=== PATIENT | female | born 1980 | race Caucasian/White ===

== ENCOUNTER 2021-07-11 11:25 | Emergency (ER) | payer OTHER ==
[~2021-07-11] VITALS: Ht 157.5 cm; Wt 88.5 kg
[2021-07-11 11:59] LABS: ABSOLUTE BASOPHILS 0.1 thou/uL (0.0-0.2); ABSOLUTE EOSINOPHILS 0.1 thou/uL (0.0-0.7); ABSOLUTE LYMPHOCYTES 1.6 thou/uL (0.8-5.3); ABSOLUTE MONOCYTES 0.6 thou/uL (0.0-1.2); ABSOLUTE NEUTROPHILS 7.7 thou/uL (1.6-8.1); BASOPHILS 0.8 %; EOSINOPHILS 1.3 %; HEMOGLOBIN 14.3 gm/dL (12.0-15.0); LYMPHOCYTES 15.5 %; MCH 29.2 pg (26.0-34.0); MCHC 33.2 g/dL (28.0-37.0); MCV 87.9 fL (80.0-100.0); MONOCYTES 5.6 %; MPV 8.8 fl. (7.2-11.1); NUCLEATED RBCS 0 /100WBC; PLATELET COUNT* 253 thou/uL (150-400); POLYS 76.8 %; RBC 4.89 mil/uL (4.20-5.00); RDW-CV 13.8 % (10.5-14.5); WBC 10.1 thou/uL (4.0-11.0)
[2021-07-11 12:11] LABS: CALCIUM 8.8 mg/dL (8.5-10.1); CREATININE 0.7 mg/dL (0.6-1.3); POTASSIUM 4.3 mmol/L (3.5-5.1)
[2021-07-11 12:22] LABS: ALBUMIN 3.8 g/dL (3.4-5.0); MAGNESIUM 2.1 mg/dL (1.8-2.4); TOTAL BILIRUBIN 0.2 mg/dL (<0.1-1.0); TOTAL PROTEIN 7.7 g/dL (6.4-8.2)
[2021-07-11 12:29] VITALS: BP 133/80
--- NOTE | 2021-07-13 08:02 | EKG ---
[place] [address] ELECTROCARDIOGRAM REPORT Name: PHILL RODRIGUEZ Room: [facility]#: [id number] Admission: 07/11/21 Attend Phys: Discharge: 07/11/21 Date of : 80 Date of Service: 07/11/21 1133 Report #: [id number] THIS REPORT FOR: //name// 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 : 1980 Requested By: Feliz Berry Order Number: [id number] MD: Nolberto Warner Measurements Intervals [place] Rate: 87 P: 59 WI: 140 QRS: 18 QRSD: 93 T: 15 QT: 356 QTc: 429 Interpretive Statements Sinus rhythm Possible left atrial enlargement Probable anteroseptal infarct, old No previous ECG available for comparison Electronically Signed On 07-13-2021 8:02:28 CDT by Nolberto Warner [email or web address] <ELECTRONICALLY SIGNED> By: Nolberto Warner MD, [facility] [id number] 1133 113 Nolberto Warner MD, [facility] /EPI
== END 2021-07-11 12:30 | disposition home or self-care (01) ==
LOC: M.ERS 11:25
PROVIDERS: Family Medicine
DX: R07.89 Other chest pain (principal); R20.0 Anesthesia of skin